=== PATIENT | female | born 1990 | race Hispanic/Latino ===

== ENCOUNTER 2018-11-26 21:17 | Emergency (ER) | payer OTHER ==
[2018-11-26 21:55] LABS: #Basophils 0.1 thou/uL (0.0-0.2); #Eosinphils 0.2 thou/uL (0.0-0.7); #Lymphocytes 2.9 thou/uL (1.20-3.40); #Monocytes 1.1 thou/uL (0.11-0.59); %Basophils 0.6 % (0.0-1.0); %Eosinophils 1.3 % (0.0-10.0); %Lymphocytes 20.3 % (21.0-51.0); %Monocytes 7.4 % (0.0-10.0); %Neutrophils 70.5 % (42.0-75.0); Hemoglobin 13.4 g/dL (12.0-16.0); Mean Corpuscular HGB CONC 35.7 g/dL (32.0-36.0); Mean Corpuscular Volume 92.7 fL (78.0-98.0); Mean Platelet Volume 9.5 fL (7.4-10.4); Platelet Count 204 thou/uL (130-400); RBC Distribution Width 11.2 % (11.5-14.5); Red Blood Cell (RBC) Count 4.05 mill/uL (4.20-5.40); White Blood Cell (WBC) Count 14.3 thou/uL (4.8-10.8)
[2018-11-26 22:15] LABS: ALT (SGPT) 33 U/L (8-55); AST (SGOT) 18 U/L (5-34); Albumin 4.5 g/dL (3.5-5.0); Alkaline Phosphatase 74 U/L (40-150); Anion Gap 14 mmol/L (10-20); BUN (Urea Nitrogen) 9 mg/dL (7.0-18.7); Bilirubin, Total 0.3 mg/dL (0.2-1.2); Calc. Creatinine Clearance 0 mL/min (70-130); Carbon Dioxide 23 mmol/L (22-29); Chloride 104 mmol/L (98-107); Estimated GFR-MDRD Greater than 90; Globulin 3.1 g/dL (2.4-3.5); Glucose 106 mg/dL (70-105); Potassium 3.7 mmol/L (3.5-5.1); Protein, Total 7.6 g/dL (6.0-8.3); Sodium 137 mmol/L (136-145)
--- NOTE | 2018-11-26 23:04 | ULT ---
EXAM: Pelvic ultrasound HISTORY: Pelvic pain COMPARISON: None TECHNIQUE: Multiple grayscale and color Doppler images were obtained in a transabdominal and transvag inal pelvic ultrasound. Spectral analysis of the Doppler waveforms of the ovaries were performed. FINDINGS: UTERUS: A gestational sac is seen within the uterus. This contains a yolk sac and a pole with c rown-rump length of 0.28 cm. This estimates gestational age of 5 weeks 6 days. No heart tones are able to be detected at this time. No free fluid is seen in the pelvis. RIGHT OVARY: Normal flow without focal mass. LEFT OVARY: Normal flow without focal mass. IMPRESSION: Early intrauterine with estimated age of 5 weeks 6 days
== END 2018-11-26 23:48 | disposition home or self-care (01) ==
LOC: ERS 21:17
DX: O20.0 Threatened abortion (principal); Z87.891 Personal history of nicotine dependence; Z3A.01 Less than 8 weeks gestation of pregnancy
CPT/HCPCS: 36415; 76856; 80053; 84702; 85025; 86900; 86901

== ENCOUNTER 2019-05-03 10:08 | Emergency (ER) | payer OTHER | END 2019-05-03 11:44 | disposition home or self-care (01) | LOC: ERS 10:08 | DX: O99.613 Diseases of the digestive system complicating pregnancy, third trimester (principal); K03.81 Cracked tooth; Z87.891 Personal history of nicotine dependence; Z3A.28 28 weeks gestation of pregnancy | CPT/HCPCS: 99282 ==

== ENCOUNTER 2019-06-23 21:04 | Day surgery (SDC) | payer OTHER ==
[2019-06-23 21:49] VITALS: BP 112/63; TEMP 98.4; BMI 39.6
[2019-06-23] MEDS ORDERED: hydrALAZINE 20 MG/ML VIAL SLOW IVP PRN (22:01)
--- NOTE | 2019-06-23 22:05 | PDOC.FPROB ---
FMR OB H&P: HPI - History of Present Illness Chief Complaint: abdominal cramping Indentification: 28yo @ 36.0 weeks gestation (EDC 07/21/2019) History of Present Illness: Angela is a 28yo G1 @ 36.0wks today who presents for a 2 day history of intermittent abdominal cramps since yesterday afternoon. She reports mildly uncomfortable abdominal cramps that do not take her breath away or make her pause. She denies vaginal bleeding, loss of fluid, discharge, or decreased movement. She states yesterday and today she was active and on her feet a lot. She states she does not drink a lot of fluids. 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 - Family History Family History: Diabetes FMR OB H&P: Medications - Current Home Medications: Medication Instructions Recorded Confirmed Type Vitamin 1 tablet PO DAILY 06/23/19 06/23/19 History Allergies/Adverse Reactions: Allergies Allergy/AdvReac Type Severity Reaction Status Date / Time Penicillins Allergy Anaphylaxis Verified 06/23/19 21:40 FMR OB H&P: ROS - Review of Systems General: denies: fever/chills, weight/appetite/sleep changes Eyes: denies: eye pain, vision changes ENT: denies: nasal congestion, rhinorrhea, sinus pain/pressure, sore throat Cardiovascular: denies: chest pain, palpitation, edema Respiratory: denies: cough, congestion, shortness of breath Gastrointestinal: reports: cramping. denies: abdominal pain, bloating, nausea, vomiting, diarrhea, constipation Genitourinary (Female): reports: contractions. denies: incontinence, dysuria, hematuria, vaginal discharge, vaginal pain, vaginal bleeding, vaginal pressure Musculoskeletal: denies: pain, stiffness, tenderness Neurologic: denies: numbness, syncope Integumentary: denies: itching, rash, lesions FMR OB H&P: Vital Signs - Maternal Vital signs: Vital Signs - First Documented Temp Pulse Resp BP 98.4 F 100 16 112/63 06/23/19 21:38 06/23/19 21:38 06/23/19 21:38 06/23/19 21:38 - Heart Tones Baseline: 140 Variability: moderate Acceleration: present Deceleration: absent FMR OB H&P: Physical Exam - Physical Exam General: NAD, awake, alert and oriented HEENT: normocephalic and atraumatic, EOMI, MMM, grossly normal vision, grossly normal hearing Breast: symmetric Heart: RRR, normal S1/S2, no murmurs/rubs/gallops General: CTAB, no respiratory distress, good air movement Abdomen: soft, non-tender Musculoskeletal: normal gait and station, pulses present Skin: no rash, good tugor Lymphatic: no unusual bruising or bleeding, no purpura Psychiatric: intact recent and remote memory, good judgement and insight, normal mood and affect - Pelvic Exam SVE: per nurse: closed, thick and high FMR OB H&P: A/P - Problem List (1) Primigravida Status: Acute Code(s): Z34.00 - ENCNTR FOR SUPRVSN OF NORMAL FIRST , UNSP TRIMESTER (2) Third trimester Status: Acute Code(s): Z34.93 - ENCNTR FOR SUPRVSN OF NORMAL PREG, UNSP, THIRD TRIMESTER Disposition: Stable, discharge home with labor precautions. Discussion: Date/Time: 06/23/192203 Third trimester @ 36.0 wks Labor rule out -SVE: Closed, thick and high. -NST: Reassuring FHTs with good accelerations and variability. -Contractions irregular on monitor and progressively less uncomfortable. -Encouraged PO hydration and contractions became undetectable to mom. -Recommend increasing fluid intake and keeping scheduled appointment later this week with Dr. Saini. -Discharged home with labor precautions. This H&P was discussed with Dr. Beaver who agrees with the above documentation and plan. Addendum - Attending - Attending Attestation Date/Time: 06/24/19 0542 I personally evaluated the patient and discussed the management with Dr. Rollins I agree with the History, Examination, Assessment and Plan documented above with any addition or exceptions noted below - 28yo G1 @ 36.0wks today who presents for a 2 day history of intermittent abdominal cramps since yesterday afternoon. Denies any LOF, VB. (+) FM. Category 1 FHTs; Occasional ctx. SVE- closed/thick/high. A/P: 1) IUP@36.0 weeks- no signs of active labor. D/c home with precautions. Increase po fluids. Follow-up as scheduled in clinic.
== END 2019-06-23 23:25 | disposition home or self-care (01) ==
LOC: L&D/OP 21:04
PROVIDERS: ATTEND Family Medicine
DX: O99.89 Other specified diseases and conditions complicating pregnancy, childbirth and the puerperium (principal); R10.9 Unspecified abdominal pain; Z3A.36 36 weeks gestation of pregnancy; Z88.0 Allergy status to penicillin

== ENCOUNTER 2019-07-02 20:33 | Inpatient (IN) | payer OTHER ==
--- NOTE | 2019-07-02 20:52 | PDOC.FPROB ---
FMR OB H&P: HPI - History of Present Illness Chief Complaint: "water broke" Indentification: 28 yo at 37.2 wga by LMP/6.1 wk sono History of Present Illness: Pt presents here stating she saw [place]mlinson/white fluid today while in the shower around 30 min to 1 hour ago. Denies VB, vaginal discharge, and contractions. + FM. Had a tooth extracted yesterday. Primary Care Physician: ADIEL: Parveen FMR OB H&P: Current - Care : 1 Para: 0 Gestational age: 37.2 Due date: 07/21/2019 Dating Criteria: LMP c/w 6.1 wk sono Course/Complications: GDM Placenta previa, saw MFM and reported as resolved, however MFM ultrasound stating resolution is not in clinic chart - OB Labs Blood type: O RH: positive Antibody Screen: negative HIV: negative RPR: negative HepBsAg: negative Rubella: immune Quad screen: negative Gonorrhea: negative Chlamydia: negative 1 hour gtt: abnormal 3 hour GTT: abnormal 2 out of 4 GBS: negative H&H: wnl - First Trimester Ultrasound First trimester: at 6.1 wk for diagnosis of FMR OB H&P: History - Past Medical History PMH: None prior to - OB History OB History: first . 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 - Surgical History Sx History: Denies - Social History Social History: Smoker prior to No alcohol or drug use during - Family History Family History: Diabetes FMR OB H&P: Medications - Current Home Medications: Medication Instructions Recorded Confirmed Type Vitamin 1 tablet PO DAILY 06/23/19 07/02/19 History Allergies/Adverse Reactions: Allergies Allergy/AdvReac Type Severity Reaction Status Date / Time Penicillins Allergy Anaphylaxis Verified 06/23/19 21:40 FMR OB H&P: ROS - Review of Systems General: denies: fever/chills, weight/appetite/sleep changes, recent trauma Eyes: denies: vision changes, double vision, scotomas ENT: reports: toothache. denies: nasal congestion, sore throat Cardiovascular: denies: chest pain, palpitation, edema Respiratory: denies: cough, congestion, shortness of breath Gastrointestinal: denies: abdominal pain, nausea, vomiting, diarrhea Genitourinary (Female): denies: dysuria, hematuria, vaginal discharge, vaginal pain, vaginal bleeding, contractions, vaginal pressure Musculoskeletal: denies: pain Neurologic: denies: syncope, seizures Integumentary: denies: itching, rash Hematologic/Lymphatic: denies: prolonged or excessive bleeding Psychological: denies: depression, anxiety FMR OB H&P: Vital Signs - Maternal Vital signs: BP wnl HR wnl - Heart Tones Baseline: 140 (reactive) Variability: moderate Acceleration: present Deceleration: absent [place] contractions every: none. Uterine irritability. FMR OB H&P: Physical Exam - Physical Exam General: NAD, awake, alert and oriented HEENT: normocephalic and atraumatic, conjunctiva clear, no scleral icterus, grossly normal vision, normal nasal mucosa Neck: supple, trachea midline Chest: non-tender to palpation Heart: RRR, normal S1/S2 Deviation from normal: systolic murmur over LSB and RSB General: CTAB, no respiratory distress, no wheezing Abdomen: soft, gravid Musculoskeletal: pulses present Skin: no rash, good tugor Lymphatic: no unusual bruising or bleeding Psychiatric: intact recent and remote memory, normal mood and affect - Pelvic Exam Membranes: ruptured per amnisure Estimated Weight: 7 lbs FMR OB H&P: A/P - Problem List (1) Premature rupture of membranes Current Visit: Yes Status: Acute Code(s): O42.90 - SHIRA ROM, 7TH0 BETW RUPT & ONST LABR, UNSP WEEKS OF GEST (2) Primigravida Current Visit: No Status: Acute Code(s): Z34.00 - ENCNTR FOR SUPRVSN OF NORMAL FIRST , UNSP TRIMESTER Disposition: admit to L&D for possible induction versus pending sono results. Discussion: Date/Time: 07/02/192050 28 yo at 37.2 wga by LMP/6.1 wk sono. Premature rupture of membranes at 37.2 wga - patient reported fluid loss around 20:00 on 07/02/2019 - amnisure positive for rupture - [place] clear fluid/pooling on speculum exam - will admit to L&D for delivery - pt desires epidural, routine anesthesia consult - GBS neg. No ppx abx indicated. Placenta previa - complete previa at 23 wga per [facility] sono - marginal previa at 28 wga per same - Pt reports previa had resolved and was cleared to have . We do not have this ultrasound report in our records - US OB limited for evaluation of placenta, presentation, and PEARL. - will await sono results to determine induction versus GDM - A1, diet controlled - pt has blood sugar log w/ her demonstrating good control. - will do glucose checks q6h during labor Will update Dr. Saini- PCP on plan of care. This H&P was discussed with Dr. Alicea and Dr. Roy, who agree with the above documentation and plan. Signature: Ilsa Duckworth MD PGY1
[2019-07-02] MEDS ORDERED: hydrALAZINE 20 MG/ML VIAL SLOW IVP PRN ×2 (20:58→21:41)
[2019-07-02 21:19] VITALS: BMI 36.1
[2019-07-02 21:22] LABS: Amnisure Internal Control QC ACCEPTABLE (ACCEPTABLE); Amnisure Test RUPTURE DETECTED (No Rupture)
[2019-07-02] MEDS ORDERED: Promethazine HCl 25 MG/ML VIAL IM PRN (21:41)
[2019-07-02] MEDS ORDERED: Ibuprofen 800 MG TAB PO PRN (21:41)
[2019-07-02] MEDS ORDERED: Lidocaine 1% (PF) 30 ML VIAL SC PRN (21:41)
[2019-07-02] MEDS ORDERED: Acetaminophen 500 MG TAB PO PRN (21:41)
[2019-07-02] MEDS ORDERED: Ondansetron PF 4 MG/2 ML Vial IVP PRN (21:41)
[2019-07-02 22:14] LABS: Hemoglobin 12.2 g/dL (12.0-16.0); Mean Corpuscular HGB CONC 34.9 g/dL (32.0-36.0); Mean Corpuscular Hemoglobin 31.9 pg (27.0-31.0); Mean Corpuscular Volume 91.5 fL (78.0-98.0); Mean Platelet Volume 8.5 fL (7.4-10.4); Platelet Count 250 thou/uL (130-400); RBC Distribution Width 13.2 % (11.5-14.5); Red Blood Cell (RBC) Count 3.83 mill/uL (4.20-5.40); White Blood Cell (WBC) Count 11.7 thou/uL (4.8-10.8)
[2019-07-02 22:51] LABS: Syphilis Antibody Nonreactive (Nonreactive); Syphilis Antibody Index 0.04 S/CO (<1.00 Non-Reactive)
--- NOTE | 2019-07-02 22:58 | ULT ---
Obstetric sonogram Limited HISTORY: Third trimester gestation. Premature rupture of membranes. FINDINGS: Single intrauterine gestation in cephalic presentation. Grade 1 placenta is posterior. No e vidence of previa. Cervix is 1.9 cm length. Fluid is apparent within the vaginal canal. Amniotic fluid index 9.6. IMPRESSION: No evidence of placenta previa. Fluid extends into the uterine cervix and vaginal canal. Amniotic fluid index is 9.6.
[2019-07-02] MEDS ORDERED: NS w/ Oxytocin 10 units 500 ML IV SCH (23:00)
[2019-07-02 23:24] LABS: HBSAg Index 0.23 S/CO (0-0.99); Hep B Surf Ag Non-Reactive S/CO (NonReactive)
--- NOTE | 2019-07-03 04:18 | PDOC.LDPN ---
Labor & Delivery Progress Note - Subjective Subjective: comfortable, no concerns - Objective Vital signs reviewed and normal: yes General: NAD, resting (sleeping) SVE: done per nursing. Dilation: 1.5 cm Effacement: 50% Station: -3 FHT: category 1, variability present (moderate) [place] contractions every: 1-2 minutes - Assessment (1) Premature rupture of membranes Code(s): O42.90 - SHIRA ROM, 7TH0 BETW RUPT & ONST LABR, UNSP WEEKS OF GEST Current Visit: Yes Status: Acute (2) Primigravida Code(s): Z34.00 - ENCNTR FOR SUPRVSN OF NORMAL FIRST , UNSP TRIMESTER Current Visit: No Status: Acute Plan: continue plan of care, pitocin for augmentation -: Pt sono: official read showing no placenta previa, PEARL of 9, fetus cephalic/ vertex. Proceed w/ induction of labor. Pitocin at 2. Continue to titrate. Cat 1 strip. continue expectant mgmt. Pt would like epidural during labor. At time of admission, pt was consented to induction of labor, possibility of c- section if arrest or NRFHT, and possibility of blood transfusion. Risks, benefits, alternatives discussed. Pt agreed to proceed w/ plan of care.
--- NOTE | 2019-07-03 08:42 | PDOC.LDPN ---
Labor & Delivery Progress Note - Subjective Subjective: painful contractions - Objective Vital signs reviewed and normal: yes General: NAD, breathing through contractions Uterine fundus: palpable contractions SVE: 1.5/50/-2 @ 0800 Dilation: 1.5 Effacement: 50% Station: -2 FHT: category 1, variability present [place] contractions every: 2 min Plan: continue plan of care, pitocin for augmentation -: 28 yo at 37.2 wga by LMP/6.1 wk sono. #Premature rupture of membranes at 37.2 wga - patient reported fluid loss around 20:00 on 07/02/2019 - amnisure positive for rupture; [place] clear fluid/pooling on speculum exam - pt desires epidural, routine anesthesia consult - GBS neg. No ppx abx indicated. - Pitocin started @ 0400 on 07/03, currently set @ 8, continue to titrate - Cat 1 strip #Placenta previa - complete previa at 23 wga per [facility] sono - marginal previa at 28 wga per same - Pt sono 07/02: official read showing no placenta previa, PEARL of 9, fetus cephalic/vertex. #GDM - A1, diet controlled - pt has blood sugar log w/ her demonstrating good control. - will do glucose checks q6h during labor Dr. Saini- PCP Dispo: Continue Expectant management. Pitocin currently @ 8, continue to titrate. At time of admission, pt was consented to induction of labor, possibility of c- section if arrest or NRFHT, and possibility of blood transfusion. Risks, benefits, alternatives discussed. Pt agreed to proceed w/ plan of care. Addendum - Attending - Attending Attestation Date/Time: 07/03/19 2575 I personally evaluated the patient and discussed the management with Dr. Saini I agree with the History, Examination, Assessment and Plan documented above with any addition or exceptions noted below. Continue pit per protocol Minimize vaginal exams. Repeat in 4 hours. GBS documented as negative. Would consider ppx after 18 to 20 hours post ROM. Brigette
[2019-07-03] MEDS ORDERED: Prenatal Vitamin 1 TAB PO SCH (09:00)
[2019-07-03] MEDS ORDERED: Fentanyl 4 mcg/Bup 0.1% Cadd 100 ML ONE (09:10)
[2019-07-03] MEDS ORDERED: Lactated Ringer's 500 ML IV PRN (11:31)
[2019-07-03] MEDS ORDERED: Promethazine HCl 25 MG/ML VIAL IM PRN (11:31)
[2019-07-03] MEDS ORDERED: ePHEDrine/0.9% NaCl/PF SYRINGE 50 mg/10 ml SLOW IVP PRN (11:31)
[2019-07-03] MEDS ORDERED: Naloxone HCl 0.4 mg/ml Vial IVP PRN ×2 (11:31)
[2019-07-03] MEDS ORDERED: Acetaminophen 325 MG TAB PO PRN (11:31)
[2019-07-03] MEDS ORDERED: Ondansetron PF 4 MG/2 ML Vial IVP PRN ×2 (11:31→23:45)
[2019-07-03] MEDS ORDERED: diphenhydrAMINE 50 MG/ML VIAL IVP PRN (11:31)
[2019-07-03] MEDS ORDERED: Communication Order-Pharmacy FS SCH (11:45)
[2019-07-03] MEDS ORDERED: Fentanyl 4 mcg/Bupivacaine 0.1% Cassette 100 ML EPIDURAL SCH (11:45)
[2019-07-03] MEDS ORDERED: Bupivacaine 0.25% HCL 30 ML VIAL ONE (13:44)
--- NOTE | 2019-07-03 16:11 | PDOC.LDPN ---
Labor & Delivery Progress Note - Subjective Subjective: comfortable, painful contractions, no concerns - Objective Vital signs reviewed and normal: yes General: NAD, resting, breathing through contractions Uterine fundus: non tender SVE: /-1 @ 1300 Dilation: 5 Effacement: 90% Station: -1 FHT: category 1, variability present [place] contractions every: 2 min Plan: continue plan of care, pitocin for augmentation -: 28 yo at 37.2 wga by LMP/6.1 wk sono. #Premature rupture of membranes at 37.2 wga - patient reported fluid loss around 20:00 on 07/02/2019 - amnisure positive for rupture; [place] clear fluid/pooling on speculum exam - pt desires epidural, routine anesthesia consult - GBS neg. No ppx abx indicated. - Pitocin started @ 0400 on 07/03, currently set @ 8, continue to titrate - Cat 1 strip - cervical check @ 1300 is /-1, making progress from last check #Placenta previa - complete previa at 23 wga per [facility] sono - marginal previa at 28 wga per same - Pt sono 07/02: official read showing no placenta previa, PEARL of 9, fetus cephalic/vertex. #GDM - A1, diet controlled - pt has blood sugar log w/ her demonstrating good control. - will do glucose checks q6h during labor Dr. Saini- PCP Dispo: Continue Expectant management. Pitocin currently @ 8, continue to titrate. At time of admission, pt was consented to induction of labor, possibility of c- section if arrest or NRFHT, and possibility of blood transfusion. Risks, benefits, alternatives discussed. Pt agreed to proceed w/ plan of care. Addendum - Attending - Attending Attestation Date/Time: 07/03/19 3218 I personally evaluated the patient and discussed the management with Dr. Neal I agree with the History, Examination, Assessment and Plan documented above with any addition or exceptions noted below. Continues to make change. Epidural for pain control. Repeat exam in 2 to 4 hours. Brigette
--- NOTE | 2019-07-03 16:13 | PDOC.LDPN ---
Labor & Delivery Progress Note - Subjective Subjective: comfortable - Objective Vital signs reviewed and normal: yes General: NAD, resting, breathing through contractions Uterine fundus: non tender SVE: 9/100/0 @ 1530 Dilation: 9 Effacement: 100% Station: 0 FHT: category 1, variability present [place] contractions every: 1-2 min Procedures: epidural placed since last check Plan: continue plan of care, pitocin for augmentation -: 28 yo at 37.2 wga by LMP/6.1 wk sono. #Premature rupture of membranes at 37.2 wga - patient reported fluid loss around 20:00 on 07/02/2019 - amnisure positive for rupture; [place] clear fluid/pooling on speculum exam - pt desires epidural, routine anesthesia consult - GBS neg. No ppx abx indicated. - Pitocin started @ 0400 on 07/03, currently set @ 8, continue to titrate - Cat 1 strip - cervical check @ 1300 is /-1, @ 1530 is now /100/0 continues to make progress from last check #Placenta previa - complete previa at 23 wga per [facility] sono - marginal previa at 28 wga per same - Pt sono 07/02: official read showing no placenta previa, PEARL of 9, fetus cephalic/vertex. #GDM - A1, diet controlled - pt has blood sugar log w/ her demonstrating good control. - will do glucose checks q6h during labor Dr. Saini- PCP Dispo: Continue Expectant management. Continue to titrate pitocin. At time of admission, pt was consented to induction of labor, possibility of c- section if arrest or NRFHT, and possibility of blood transfusion. Risks, benefits, alternatives discussed. Pt agreed to proceed w/ plan of care. Addendum - Attending - Attending Attestation Date/Time: 07/03/19 1710 I personally evaluated the patient and discussed the management with Dr. Saini I agree with the History, Examination, Assessment and Plan documented above with any addition or exceptions noted below. now 9 cm. Repeat in 2 hours. Continue pitocin protocol. Brigette
--- NOTE | 2019-07-03 19:53 | PDOC.OPDEL ---
OB Operative/Delivery Note Delivery Dr/Surgeon: Ángel Roy [place] Pre-Delivery Diagnosis: ruptured membrane Procedure/Post Delivery Dx: spontaneous vaginal delivery Weeks gestation: 37 Anesthesia: epidural - Findings A Sex: male - 1 min: 8 - 5 min: 9 - Additional Findings/Plan Placenta delivered: spontaneous Repaired Obstetrical Laceration: 3rd degree Estimated blood loss: 650 Compilations/Other Findings: This is 28yo F @ 37.3 wks who delivered a viable M at 1931 on 07/03. Following an uneventful intrapartum course, a vigorous male was delivered over an intact perineum in the occipitoanterior position. Anterior shoulder and then remainder of the body delivered. No nuchal cord. The head was held down and mouth and nares were bulb suctioned. Cord clamped after delayed cord clamping and cut and cord blood collected. Placenta delivered intact in the [place] presentation with a 3 vessel cord noted. Fundal massage was performed and the fundus firmed. the cervix and vagina were inspected and a 3rd degree laceration was found in the 5 oclock position, it was repaired with 2-0 and 3-0 Vicryl. Infant went to nursery in good condition for routine care. Apgars were 8/9 at 1 & 5 minutes, respectively. Patient tolerated delivery well and went to after routine recovery/care. Post delivery plan: routine recovery
[2019-07-03] MEDS: NS / Oxytocin 40 units/1000ml 1,000 ML IV PRN ×2 (20:00→22:32)
[2019-07-03] MEDS ORDERED: Adacel (T-DAP) 0.5 ML SYRINGE IM ONE (23:45)
[2019-07-03] MEDS ORDERED: Benzocaine-Menthol 82.5 ML CAN TOP PRN (23:45)
[2019-07-03] MEDS ORDERED: Bisacodyl 10 MG SUPP PR PRN (23:45)
[2019-07-03] MEDS ORDERED: Lanolin Ointment 7 GM TUBE TOP PRN (23:45)
[2019-07-03] MEDS ORDERED: hydrALAZINE 20 MG/ML VIAL SLOW IVP PRN (23:45)
[2019-07-03] MEDS ORDERED: Milk Of Magnesia 30 ML UDCUP PO PRN (23:45)
[2019-07-03] MEDS ORDERED: NS / Oxytocin 40 units/1000ml 1,000 ML IV SCH (23:45)
[2019-07-04] MEDS: Ibuprofen 800 MG TAB PO SCH ×4 (06:09→22:35)
[2019-07-04] MEDS ORDERED: Acetaminophen/Codeine 30-300mg Tablet PO PRN (07:30)
--- NOTE | 2019-07-04 07:33 | PDOC.PP ---
Post Progress Note Post Day #: 1 Subjective: pt doing well, resting comfortably in bed, reports mild pain and minimal bleeding. PO intake tolerated: yes Flatus: no Ambulation: yes Vital Signs (12 hours) Temp Pulse Resp BP Pulse Ox 07/04/19 06:10 97.7 F 82 16 101/60 99 Weight Weight 92.533 kg - Physical Examination General: NAD Cardiovascular: RRR Respiratory: clear to auscultation bilaterally Abdominal: + bowel sounds, appropriately TTP Extremities: negative homans (B) Skin: no rash Neurological: no gross focal deficits Psychiatric: A&Ox3, normal affect Result Diagrams: 07/04/19 05:26 Additional Labs: Post Labs Blood Type O POSITIVE 07/02/19 22:03 Hep Bs Antigen Non-Reactive S/CO (NonReactive) 07/02/19 22:03 (1) Primigravida Code(s): Z34.00 - ENCNTR FOR SUPRVSN OF NORMAL FIRST , UNSP TRIMESTER Status: Acute - Assessment/Plan s/p - routine PP care, Hb wnl, avoid iron, add stool softener - ibuprofen for pain control, T3 for breakthrough - consult - GBS -, afebrile dispo: likely DC tomorrow Addendum - Attending - Attending Attestation Date/Time: 07/04/19 1026 I personally evaluated the patient and discussed the management with Dr. Saini I agree with the History, Examination, Assessment and Plan documented above with any addition or exceptions noted below. PPD#1 Patient doing well this morning but having difficulty with pain to rectum and vagina. Incision healing well. No edema or dehiscence. Pain to palpation. Small hemorrhoid present. Will continue routine PP care. Improved pain control. Will add ice. Will discontinue T3 due to breast feeding. Continue bowel regiment for 3rd lac. Add hemorrhoid treatment. Will need 2 hour OGTT at 6 wks pp. Brigette
[2019-07-04] MEDS: Ferrous Sulfate 325 MG TAB PO SCH ×2 (09:51→17:53)
[2019-07-04] MEDS: Docusate Calcium (SURFAK) 240 MG CAP PO SCH ×2 (09:51→21:39)
[2019-07-04] MEDS ORDERED: Milk Of Magnesia 30 ML UDCUP PO PRN (10:33)
[2019-07-04] MEDS ORDERED: Bisacodyl 10 MG SUPP PR PRN (10:35)
[2019-07-04] MEDS ORDERED: Preparation H Suppository PR PRN (17:09)
[2019-07-04] MEDS: HYDROcodone/Acetaminophen 5/325 mg Tablet PO PRN (21:38)
--- NOTE | 2019-07-05 02:43 | PDOC.PP ---
Post Progress Note Post Day #: 2 Subjective: pt doing well, pain is improved. unable to breastfeed successfully. minimal bleeding PO intake tolerated: yes Flatus: yes Ambulation: yes Vital Signs (12 hours) Temp Pulse Resp BP Pulse Ox 07/05/19 00:06 98.3 F 83 16 91/52 L 99 07/04/19 19:10 98.4 F 99 20 107/68 99 Weight Weight 92.533 kg - Physical Examination General: NAD Respiratory: non-labored breathing Abdominal: appropriately TTP Skin: no rash Neurological: no gross focal deficits Psychiatric: A&Ox3, normal affect Result Diagrams: 07/04/19 05:26 Additional Labs: Post Labs Blood Type O POSITIVE 07/02/19 22:03 Hep Bs Antigen Non-Reactive S/CO (NonReactive) 07/02/19 22:03 (1) Primigravida Code(s): Z34.00 - ENCNTR FOR SUPRVSN OF NORMAL FIRST , UNSP TRIMESTER Status: Acute - Assessment/Plan s/p - routine PP care, Hb wnl, avoid iron, stool softener - ibuprofen for pain control, norco for breakthrough - consult - GBS -, afebrile dispo: DC later today Addendum - Attending - Attending Attestation Date/Time: 07/05/19 1310 I personally evaluated the patient and discussed the management with Dr. Saini I agree with the History, Examination, Assessment and Plan documented above with any addition or exceptions noted below - Patient without complaints. Afebrile VSS. A/P: 1) PPD#2 s/p - doing well; plan to d/c home today.
[2019-07-05] MEDS: HYDROcodone/Acetaminophen 5/325 mg Tablet PO PRN ×3 (04:42→17:12)
[2019-07-05] MEDS ORDERED: Prenatal Vitamin 1 TAB PO SCH (09:00)
[2019-07-05] MEDS ORDERED: Polyethylene Glycol 3350 17 GM Packet PO SCH (09:00)
[2019-07-05 09:03] VITALS: BP 90/46; TEMP 97.8
[2019-07-05] MEDS: Docusate Calcium (SURFAK) 240 MG CAP PO SCH (09:04)
[2019-07-05] MEDS: Ferrous Sulfate 325 MG TAB PO SCH ×2 (09:04→17:15)
[2019-07-05] MEDS: Ibuprofen 800 MG TAB PO SCH ×2 (09:04→17:13)
== END 2019-07-05 18:13 | disposition home or self-care (01) | DRG 768 ==
LOC: L&D/OP 20:33 → L&D 07-03 02:14 → EEVIPCON 07-03 02:14 → L&D 07-03 23:31 → 3SE 07-04 06:08
PROVIDERS: ADMIT Family Medicine; ATTEND Family Medicine
PROC: 10E0XZZ Delivery of Products of Conception, External Approach (ICD-10-PCS; principal; 2019-07-03)
PROC: 0DQR0ZZ Repair Anal Sphincter, Open Approach (ICD-10-PCS; 2019-07-03)
DX: O42.92 Full-term premature rupture of membranes, unspecified as to length of time between rupture and onset of labor (principal); Z37.0 Single live birth; O44.23 Partial placenta previa NOS or without hemorrhage, third trimester; O70.20 Third degree perineal laceration during delivery, unspecified; O24.420 Gestational diabetes mellitus in childbirth, diet controlled; Z3A.37 37 weeks gestation of pregnancy; Z88.0 Allergy status to penicillin
CPT/HCPCS: 36415; 36416; 51702; 76815; 84112; 85014; 85018; 85027; 86780; 86850; 86900; 86901; 87340; 99285; J2405; J2590; S0020